=== PATIENT | female | born 1980 | race Caucasian/White ===

== ENCOUNTER 2021-07-11 11:19 | Emergency (ER) | payer MEDICAID ==
[~2021-07-11] VITALS: Ht 152.4 cm; Wt 63.0 kg
[2021-07-11] MEDS ORDERED: ACETAMINOPHEN 325MG TABLET PO ONE (11:45)
[2021-07-11 13:48] VITALS: BP 126/75
== END 2021-07-11 13:49 | disposition home or self-care (01) ==
LOC: ER 11:29
DX: S29.012A Strain of muscle and tendon of back wall of thorax, initial encounter (principal); X58.XXXA Exposure to other specified factors, initial encounter; Y93.89 Activity, other specified; Y92.89 Other specified places as the place of occurrence of the external cause
CPT/HCPCS: 72070; 99283